=== PATIENT | female | born 1985 | race Caucasian/White ===

== ENCOUNTER 2021-07-25 09:46 | Outpatient (CLI) | payer OTHER | END 2021-07-25 09:53 | disposition home or self-care (01) | LOC: RAD 09:46 | PROVIDERS: ATTEND General Practice | DX: M25.572 Pain in left ankle and joints of left foot (principal) ==

== ENCOUNTER 2022-09-04 15:29 | Outpatient (CLI) | payer OTHER | END 2022-09-04 15:38 | disposition home or self-care (01) | LOC: RAD 15:29 | DX: M99.01 Segmental and somatic dysfunction of cervical region (principal); M99.02 Segmental and somatic dysfunction of thoracic region; M99.03 Segmental and somatic dysfunction of lumbar region; M99.04 Segmental and somatic dysfunction of sacral region; M99.05 Segmental and somatic dysfunction of pelvic region ==